=== PATIENT | female | born 1995 | race Caucasian/White ===

== ENCOUNTER 2020-03-01 10:37 | Inpatient (IN) | payer SELFPAY ==
[~2020-03-01] VITALS: Ht 162.6 cm; Wt 76.2 kg
[2020-03-01] MEDS ORDERED: PRETAB PO (11:30)
[2020-03-01] MEDS ORDERED: METHYLERGONOVINE 0.2 MG/ML AMP IM PRN (11:30)
[2020-03-01] MEDS ORDERED: CARBOPROST 250 MCG/ML AMP IM PRN (11:30)
[2020-03-01 14:04] LABS: BASOPHILS % (AUTO) 0.5 % (0.0-2.0); EOSINOPHILS % (AUTO) 0.6 % (0.0-4.0); HEMATOCRIT 38.6 % (36-48); HEMOGLOBIN 12.8 g/dL (12.0-16.0); LYMPHOCYTES # (AUTO) 1.1 K/uL (2.5-16.5); LYMPHOCYTES % (AUTO) 16.9 % (20.5-51.1); MEAN CORPUSCULAR HEMOGLOBIN 29 pg (27-31); MEAN CORPUSCULAR HGB CONC 33 g/dL (33-37); MEAN CORPUSCULAR VOLUME 87.1 fL (80-94); MONOCYTES # (AUTO) 0.5 K/uL (0.8-1.0); NEUTROPHILS # (AUTO) 4.9 K/uL (1.8-7.7); PLATELET COUNT (AUTO) 194 K/uL (140-450); RED BLOOD CELL COUNT(AUTO) 4.44 MIL/uL (4.20-5.40); RED CELL DISTRIBUTION WIDTH 12.9 % (11.6-13.7); WHITE BLOOD COUNT (AUTO) 6.6 K/uL (4.8-10.8)
[2020-03-01 14:31] LABS: ANION GAP 14.4 (8-16); CARBON DIOXIDE 23.1 mmol/L (21-32); CREATININE 0.8 mg/dL (0.6-1.3); POTASSIUM 3.5 mmol/L (3.5-5.1); TOTAL BILIRUBIN 0.2 mg/dL (0.0-1.0)
[2020-03-01 14:39] LABS: APPEARANCE,URINE CLEAR (CLEAR); BILIRUBIN,URINE NEGATIVE (NEGATIVE); BLOOD, URINE NEGATIVE (NEGATIVE); COLOR,URINE YELLOW (YELLOW); LEUKOCYTE ESTERASE ,URINE 1+ (NEGATIVE); NITRITE, URINE NEGATIVE (NEGATIVE); UGLUCOSE NEGATIVE (NEGATIVE)
[2020-03-01] MEDS ORDERED: OXYTOCIN 20 UNITS in LACTATED RINGERS 1,000 ML IV SCH (15:25)
[2020-03-01] MEDS: LACTATED RINGERS 1,000 ML IV SCH (15:27)
[2020-03-01 15:29] LABS: RBC,URINE 0-5 /HPF (0-5); WBC,URINE 0-5 /HPF (0-5)
[2020-03-01 15:58] VITALS: BP 105/65
[2020-03-01] MEDS ORDERED: MISOPROSTOL 25 MCG TAB ONE (16:15)
[2020-03-01] MEDS ORDERED: MISOPROSTOL 25 MCG TAB VG SCH (18:00)
[2020-03-02] MEDS ORDERED: MORPHINE SULFATE 5 MG/ML VIAL IVP PRN (05:30)
[2020-03-02] MEDS ORDERED: ONDANSETRON 4 MG/2 ML VIAL IVP PRN (05:30)
[2020-03-02] MEDS ORDERED: MORPHINE SULFATE 10 MG/ML VIAL ONE (05:33)
--- NOTE | 2020-03-02 06:27 | NUR ---
PATIENT HAS BEEN SCREENED AND CATEGORIZED LOW NUTRITION RISK. PATIENT WILL BE SEEN WITHIN 7 DAYS OF ADMISSION. 03/08/20 SHAREE BLANCO MBA,RD
[2020-03-02] MEDS ORDERED: ROPIVACAINE 0.2%/NS PREMIX 200 ML EPI ONE (09:16)
[2020-03-02] MEDS ORDERED: OXYTOCIN 20 UNITS/LR PREMIX 1,000 ML IV ONE (11:39)
[2020-03-02] MEDS: LACTATED RINGERS 1,000 ML IV SCH (14:21)
[2020-03-02] MEDS ORDERED: METHYLERGONOVINE 0.2 MG TAB PO PRN (15:50)
[2020-03-02] MEDS ORDERED: OXYTOCIN 10 UNITS/ML VIAL IM PRN (15:50)
[2020-03-02] MEDS ORDERED: HYDROcodone/APAP 5/325 MG 1 TAB TAB PO PRN (15:50)
[2020-03-02] MEDS ORDERED: METHYLERGONOVINE 0.2 MG/ML AMP IM PRN (15:50)
[2020-03-02] MEDS ORDERED: BENZOCAINE/MENTHOL 20%-0.5% 60 GM CAN TP PRN (15:50)
[2020-03-02] MEDS ORDERED: MEASLES, MUMPS, AND RUBELLA 1 VIAL SQVAC PRN (15:50)
[2020-03-02] MEDS ORDERED: IBUPROFEN 800 MG TAB PO PRN (15:50)
[2020-03-02] MEDS ORDERED: IBUPROFEN 800 MG TAB ONE (16:58)
[2020-03-03 08:26] LABS: HEMATOCRIT 33.2 % (36-48); HEMOGLOBIN 11.3 g/dL (12.0-16.0)
== END 2020-03-03 22:30 | disposition home or self-care (01) | DRG 807 ==
LOC: OBSVTOIN 10:37 → MLD 10:37 → MFCC 03-02 19:15
PROVIDERS: ADMIT Obstetrics & Gynecology; ATTEND Obstetrics & Gynecology
PROC: 10E0XZZ Delivery of Products of Conception, External Approach (ICD-10-PCS; principal; 2020-03-01)
PROC: 0KQM0ZZ Repair Perineum Muscle, Open Approach (ICD-10-PCS; 2020-03-01)
PROC: 3E0R3BZ Introduction of Anesthetic Agent into Spinal Canal, Percutaneous Approach (ICD-10-PCS; 2020-03-01)
PROC: 00HU33Z Insertion of Infusion Device into Spinal Canal, Percutaneous Approach (ICD-10-PCS; 2020-03-01)
DX: O76 Abnormality in fetal heart rate and rhythm complicating labor and delivery (principal); Z37.0 Single live birth; O99.02 Anemia complicating childbirth; O70.1 Second degree perineal laceration during delivery; D64.9 Anemia, unspecified; Z20.822 Contact with and (suspected) exposure to COVID-19; Z3A.40 40 weeks gestation of pregnancy
CPT/HCPCS: 36415; 51702; 59200; 59409; 80053; 81001; 85018; 85025; 86592; 86886; 86900; 86901; 87086; J2270; J2405; J2590; J2795; J7120